=== PATIENT | female | born 1990 | race Two or more races ===

== ENCOUNTER 2023-02-02 00:29 | Emergency (ER) | payer OTHER ==
[~2023-02-02] VITALS: Ht 170.2 cm; Wt 81.6 kg
[2023-02-02] MEDS ORDERED: FOLIC ACID0.8 M1 (00:40)
[2023-02-02] MEDS ORDERED: PRENATAL CAPLE1 EAC1 (00:40)
[2023-02-02 03:10] LABS: HEMOGLOBIN 13.4 g/dL (12.0-15.00); MEAN CELL VOLUME 87.1 fL (80.00-100.00); MEAN CORPUSCULAR HEMOGLOBIN 28.5 pg (27.00-32.0); MEAN CORPUSCULAR HGB CONC 32.7 g/dl (32.0-36.0); PLATELET COUNT 391 K/uL (150-450); RED BLOOD COUNT 4.71 M/uL (4.00-6.00); RED CELL DISTRIBUTION WIDTH 13.1 % (11.5-14.5)
== END 2023-02-02 06:38 | disposition home or self-care (01) ==
LOC: ER 00:29
DX: O20.0 Threatened abortion (principal); Z3A.11 11 weeks gestation of pregnancy

== ENCOUNTER 2023-04-10 11:11 | Outpatient (CLI) | payer OTHER ==
[~2023-04-10 11:11] MED LIST: FOLIC ACID0.8 M1; PRENATAL CAPLE1 EAC1
== END 2023-04-10 11:15 | disposition home or self-care (01) ==
LOC: PRENATAL 11:11
PROVIDERS: ATTEND Obstetrics & Gynecology Maternal & Fetal Medicine
DX: O35.9XX0 Maternal care for (suspected) fetal abnormality and damage, unspecified, not applicable or unspecified (principal); O35.3XX0 Maternal care for (suspected) damage to fetus from viral disease in mother, not applicable or unspecified; O44.00 Complete placenta previa NOS or without hemorrhage, unspecified trimester; Z3A.20 20 weeks gestation of pregnancy